=== PATIENT | male | born 1985 | race Caucasian/White ===

== ENCOUNTER 2016-07-11 17:34 | Emergency (ER) | payer BC ==
[~2016-07-11] VITALS: Ht 175.3 cm; Wt 80.2 kg
[2016-07-11 19:39] LABS: HEMATOCRIT 45.6 % (38.0-50.0); MCH 29.6 PG (29.0-34.0); MCHC 34.9 G/DL (30.0-36.0); MCV 84.9 FL (86-99); PLATELET COUNT 216 K/uL (156-360); RBC DIS.WIDTH-SD 36.8 % (39-53); RED BLOOD COUNT 5.37 M/uL (4.00-5.50); WHITE BLOOD COUNT 11.4 K/uL (4.1-10.2)
[2016-07-11 19:47] LABS: CHLORIDE 105 mEq/L (99-109); POTASSIUM 3.2 mEq/L (3.7-5.4); SODIUM 139 mEq/L (136-147)
[2016-07-11 19:49] LABS: GLUCOSE 100 mg/dL (70-99)
[2016-07-11 19:50] LABS: ANION GAP 8 MEQ/L (2-14)
[2016-07-11 19:52] LABS: D-DIMER ELISA < 0.15 mg/L FEU (< 0.57)
[2016-07-11 19:53] LABS: GFR ESTIMATE (CALCULATED) > 59 mL/min/
[2016-07-11 19:54] LABS: UREA NITROGEN (BUN) 11 mg/dL (9-23)
[2016-07-11 20:33] VITALS: BP 139/77
== END 2016-07-11 20:35 | disposition home or self-care (01) ==
LOC: EME 17:34
PROVIDERS: Emergency Medicine
DX: R07.89 Other chest pain (principal); F41.9 Anxiety disorder, unspecified
CPT/HCPCS: 71020; 80048; 85027; 85379; 93005; 99281; 99284; J2060; J7030

== ENCOUNTER 2016-07-13 21:01 | Emergency (ER) | payer BC ==
[~2016-07-13] VITALS: Ht 175.3 cm; Wt 79.4 kg
[2016-07-13 22:25] LABS: TROP-I INTERPRETATION NEGATIVE; TROPONIN-I < 0.01 ng/mL (0.0-0.30)
[2016-07-13 23:14] VITALS: BP 124/80
== END 2016-07-13 23:28 | disposition home or self-care (01) ==
LOC: EME 21:01
PROVIDERS: Emergency Medicine
DX: R07.89 Other chest pain (principal); F41.9 Anxiety disorder, unspecified
CPT/HCPCS: 84484; 93005; 99281; 99283